=== PATIENT | male | born 1995 | race Caucasian/White ===

== ENCOUNTER → 2017-09-28 | Outpatient (REF) | payer OTHER | LOC: M LAB REF 18:34 | PROVIDERS: ATTEND Physician Assistant | DX: J03.90 Acute tonsillitis, unspecified (principal) ==

== ENCOUNTER 2019-02-14 00:35 | Emergency (ER) | payer OTHER, SELFPAY ==
[~2019-02-14] VITALS: Ht 175.3 cm; Wt 75.0 kg
[2019-02-14 00:35] VITALS: BP 119/78
[2019-02-14] MEDS ORDERED: MOTR200T44 PO (00:42)
[2019-02-14] MEDS ORDERED: KETO10TAB PO (01:26)
[2019-02-14] MEDS ORDERED: KETOROLAC 60 MG/2 ML VIAL (J1885) IM ONE (01:30)
--- NOTE | 2019-02-14 08:29 | REP ---
Clinical: Trauma. Technique: AP, lateral, bilateral oblique views left hand . Findings: The osseous structures and joint spaces are intact and normal. There is no evidence for acute fracture or dislocation. Surrounding soft tissues are unremarkable. No subcutaneous emphysema or radiodense foreign body. Impression: Normal left hand series . No acute fracture or dislocation. Electronically Signed by Laz Cohn MD 02/14/2019 08:19 A
--- NOTE | 2019-02-14 08:39 | REP ---
Clinical: Trauma. Technique: AP, lateral, bilateral oblique views left wrist . Findings: The carpal bones, surrounding osseous structures, soft tissues, and joint spaces are normal. There is no evidence for acute fracture or dislocation. No subcutaneous emphysema or radiodense foreign body. Impression: Normal wrist series. No acute fracture or dislocation Electronically Signed by Laz Cohn MD 02/14/2019 08:30 A
== END 2019-02-14 01:47 | disposition home or self-care (01) ==
LOC: M ED 00:35
DX: M65.4 Radial styloid tenosynovitis [de Quervain] (principal)

== ENCOUNTER → 2020-07-10 | Outpatient (REF) | payer OTHER ==
[~2020-07-10] MED LIST: KETO10TAB PO; MOTR200T44 PO
[2020-07-10 23:50] LABS: CHLAMYDIA DNA AMPLIFICATION NEGATIVE (NEGATIVE); GC DNA AMPLIFICATION NEGATIVE (NEGATIVE)
== END ==
LOC: M LAB REF 21:55
PROVIDERS: ATTEND Physician Assistant Medical
DX: Z11.3 Encounter for screening for infections with a predominantly sexual mode of transmission (principal)

== ENCOUNTER → 2021-01-18 | Outpatient (CLI) | payer OTHER ==
[2021-01-18 16:32] LABS: ALBUMIN 4.5 GM/DL (3.2-5.2); ALT/SGPT 28 U/L (12-78); BILIRUBIN,TOTAL 0.5 MG/DL (0.2-1.0); BLOOD UREA NITROGEN 14 MG/DL (7-18); CALCIUM LEVEL 9.2 MG/DL (8.5-10.1); CARBON DIOXIDE LEVEL 31 MEQ/L (21-32); CHLORIDE LEVEL 105 MEQ/L (98-107); CREATININE FOR GFR 0.93 MG/DL (0.70-1.30); GLOMERULAR FILTRATION RATE > 60.0 (>60); GLUCOSE, FASTING 100 MG/DL (70-100); POTASSIUM SERUM 4.3 MEQ/L (3.5-5.1); SODIUM LEVEL 140 MEQ/L (136-145); TOTAL PROTEIN 7.1 GM/DL (6.4-8.2)
[2021-01-18 16:38] LABS: HEMATOCRIT 41.4 % (42.0-52.0); HEMOGLOBIN 13.9 g/dl (13.5-17.5); MEAN CORPUSCULAR HEMOGLOBIN 30.8 pg (27.0-33.0); MEAN CORPUSCULAR HGB CONC 33.6 g/dl (32.0-36.5); MEAN CORPUSCULAR VOLUME 91.6 fl (80.0-96.0); PLATELET COUNT, AUTOMATED 208 10^3/uL (150-450); RED BLOOD COUNT 4.52 10^6/uL (4.30-6.10); WHITE BLOOD COUNT 6.1 10^3/uL (4.0-10.0)
== END ==
LOC: M WUC 13:38
PROVIDERS: ATTEND Physician Assistant
DX: Z00.00 Encounter for general adult medical examination without abnormal findings (principal)